=== PATIENT | male | born 1975 | race African-American/Black ===

== ENCOUNTER 2017-12-31 20:57 | Emergency (ER) | payer SELFPAY ==
--- NOTE | 2017-12-31 21:05 | ED Physician Documentation ---
General Adult - HISTORIAN Historian: patient - HPI Stated Complaint: chest pain Chief Complaint: General Adult Onset: hours Timing: still present Severity: moderate Further Comments: yes (Pt is a 42 yo aa male with chest pain, sob. Pt has been vomiting all day. He says he has vomited at least 30 times and believes he is dehydrated because he has been unable to drink or to keep down anti-emetic meds. Pt has had chest pain in his central chest that radiates to his throat. Pt feels a little difficulty swallowing. Pt was tachycardic or arrival and ap peared anxious, but bp and hr normalized after a short time in ER.) - ROS CONST: weakness EYES/ENT: none CVS/RESP: chest pain, shortness of breath GI/: vomiting, nausea. denies: diarrhea MS/SKIN/LYMPH: none NEURO/PSYCH: dizziness - PAST HX Past History: other (GI ulcers, hernia.) Allergies/Adverse Reactions: Allergies Allergy/AdvReac Type Severity Reaction Status Date / Time No Known Allergies Allergy Verified 12/31/17 21:25 Home Medications: Ambulatory Orders Medication Instructions Recorded NK 12/31/17 - SOCIAL HX Smoking History: cigarettes Drug Use: marijuana - FAMILY HX Family History: No - REVIEWED ASSESSMENTS Nursing Assessment Reviewed: Yes Vitals Reviewed: Yes Progress - Progress Progress: NS 1 L IVF x 2 Zofran 4 mg IV much improved. Rx Ciprofloxacin 500 mg. 1 po q 12 h x 5 days, #10. 1st dose in ER. Rx Zofran ODT 4 mg. 1 po q 6-8 h prn, #8. - EKG/XRAY/CT EKG: NSR (HR=92; LAFB; LAD) General Adult Physical Exam - PHYSICAL EXAM GENERAL APPEARANCE: very anxious EENT: ENT inspection normal, pharynx normal NECK: normal inspection, supple RESPIRATORY: chest non-tender, breath sounds normal CVS: tachycardia ABDOMEN: soft, no organomegaly, normal bowel sounds BACK: normal inspection, no CVA tenderness SKIN: warm/dry, normal color EXTREMITIES: non-tender, normal range of motion, no evidence of injury, no edema NEURO: oriented X3, motor nml, sensation nml, other (anxious) Discharge Clincal Impression: Dehydration, non cardiac chest pain Nausea & vomiting Qualifiers: Vomiting type: unspecified Vomiting Intractability: non-intractable Qualified Code(s): R11.2 - Nausea with vomiting, unspecified Referrals: Primary Doctor,No [Primary Care Provider] - Condition: Stable Disposition: 01 HOME, SELF-CARE Decision to Admit: NO Decision Time: 00:10
[2017-12-31] MEDS: ASPIRIN 81 MG CHEW TAB PO ONE (21:22)
[2017-12-31] MEDS: 0.9 % SODIUM CHLORIDE 1,000 ML IV ONE ×3 (21:23→22:37)
[2017-12-31] MEDS: IPRATROPIUM/ALBUTEROL SULFATE 3 ML AMPUL.NEB NEB ONE ×2 (21:23→21:25)
[2017-12-31 21:46] LABS: eGFR (Non-African) > 60
[2017-12-31] MEDS: ONDANSETRON HCL/PF 4 MG/ 2ML VIAL IVP ONE (21:46)
[2017-12-31] MEDS: ONDANSETRON HCL/PF 4 MG/ 2ML VIAL ONE (21:51)
[2017-12-31] MEDS: NITROGLYCERIN 0.4 MG TAB.SUBL SL ONE ×2 (21:59→22:00)
[2017-12-31 23:01] LABS: EOS % 0.1 % (0.0-6.8); LYMPH ABS # 1.05 thou/uL (0.60-4.00); MCH. 32.6 pg (28.0-34.0); MCV 97.2 fL (80.0-100.0); MONOCYTE ABS # 0.61 thou/uL (0.00-0.90); PLATELET COUNT 247 thou/uL (130-400)
[2018-01-01 00:04] LABS: TROPONIN T <0.010 ng/mL (<0.010)
[2018-01-01] MEDS: ONDANSETRON HCL 4 MG TAB.RAPDIS PO ONE (00:20)
[2018-01-01] MEDS: CIPROFLOXACIN HCL 500 MG TABLET PO ONE (00:20)
[2018-01-01 00:47] VITALS: BP 127/80
--- NOTE | 2018-01-01 06:05 | Diagnostic Imaging Report ---
MONIQUE MALDONADO [facility] [id number] [facility] [address] [id number] Report Submission Date: Dec 31, 2017 9:46:13 PM CDT Patient Study Name: SULEIMAN PASCUAL Date: Dec 31, 2017 9:27:44 PM CDT Modality Type: DX Gender: M Description: CHEST : 77 Institution: [facility] Physician: MONIQUE MALDONADO Portable chest History: Chest pain and shortness of breath Findings: The lungs are clear. There is no pleural effusion. Heart size and pulmonary vascularity are normal. Osseous structures are intact. Impression: Normal chest. Electronically signed on Dec 31, 2017 9:46:13 PM CDT by: Geoff BECKMAN
[2018-01-01 07:19] LABS: CANNABINOIDS NON NEGATIVE ng/mL (< 50); METHYLENEDIOXYMETHAMPHETAMINE NEGATIVE ng/mL (<500)
== END 2018-01-01 00:30 | disposition home or self-care (01) ==
LOC: ED 20:57
DX: E86.0 Dehydration (principal); R07.89 Other chest pain; R11.2 Nausea with vomiting, unspecified
CPT/HCPCS: 71045; 80053; 80377; 82550; 82553; 84484; 85025; 85379; 93005; A9270; J2405; J7030; 94640; 96360; 96361; 96375; 99285; G0481; S1016